=== PATIENT | male | born 1985 | race Caucasian/White ===

== ENCOUNTER 2018-12-24 08:48 | Inpatient (IN) | payer OTHER ==
[~2018-12-24] VITALS: Ht 188 cm; Wt 122.5 kg
[2018-12-24] MEDS ORDERED: ONDANSETRON HCL 4 MG/2 ML VIAL ONE ×2 (09:33→17:54)
[2018-12-24] MEDS ORDERED: MORPHINE SULFATE 4 MG/1ML SYG ONE ×3 (09:34→17:54)
[2018-12-24] MEDS ORDERED: SODIUM CHLORIDE 0.9% 1000ML 1,000 ML IV ONE ×2 (09:34→17:55)
[2018-12-24] MEDS ORDERED: DIATR MEGLU/DIATRIZOATE SODIUM 30 ML BOTTLE ONE (09:35)
[2018-12-24 09:41] LABS: CREATININE 1.2 mg/dL (0.5-1.5)
[2018-12-24 09:43] LABS: INR 0.95 (0.85-1.15); PARTIAL THROMBOPLASTIN TIME 34.6 SEC (26.3-35.5)
[2018-12-24 09:45] LABS: ALBUMIN 4.3 g/dL (3.5-5.0); BILIRUBIN,DIRECT 0.1 mg/dL (0.0-0.3); BILIRUBIN,TOTAL 0.4 mg/dL (0.2-1.0); TOTAL PROTEIN, SERUM 7.6 g/dL (6.0-8.3)
[2018-12-24 09:48] LABS: BASOPHILS % (AUTO) 0.9 % (0.0-5.0); EOSINOPHILS % (AUTO) 18.4 % (0.0-8.0); HEMATOCRIT 45.1 % (42-54); LYMPHOCYTES % (AUTO) 19.9 % (21.0-51.0); MEAN CORPUSCULAR HEMOGLOBIN 30.9 pg (27.0-33.0); MEAN CORPUSCULAR HGB CONC 33.9 g/dL (32.0-36.0); MEAN CORPUSCULAR VOLUME 91.1 fL (79-99); MONOCYTES % (AUTO) 6.6 % (3.0-13.0); NEUTROPHILS % (AUTO) 54.2 % (40.0-77.0); NUCLEATED RED BLOOD CELLS 0.1 % (0.0-0.19); PLATELET COUNT (AUTO) 210 K/uL (130-400); RED BLOOD CELL COUNT(AUTO) 4.94 MIL/uL (4.50-6.20); RED CELL DISTRIBUTION WIDTH 13.4 % (11.0-15.5); WHITE BLOOD COUNT (AUTO) 8.9 K/uL (4.8-10.8)
[2018-12-24 10:13] LABS: APPEARANCE,URINE Clear (CLEAR); BILIRUBIN,URINE Negative (NEGATIVE); COLOR,URINE Yellow (YELLOW); GLUCOSE, URINE (UA) Negative (NEGATIVE); KETONES,URINE Trace mg/dL (NEGATIVE); LEUKOCYTE ESTERASE ,URINE Negative (NEGATIVE); NITRATE,URINE Negative (NEGATIVE); OCCULT BLOOD,URINE Negative (NEGATIVE); PH,URINE 5.5 (5.0-8.0); PROTEIN,URINE Negative (NEGATIVE)
[2018-12-24 10:26] LABS: BACTERIA,URINE None Seen /HPF (None Seen); RBC,URINE None Seen /HPF (0-1); SQUAMOUS EPITHELIAL CELL,UR 0-2 /HPF (0-2); WBC,URINE None Seen /HPF (0-1)
[2018-12-24] MEDS ORDERED: IOHEXOL-350 75 ML VIAL IV ONE (12:11)
[2018-12-24] MEDS ORDERED: KETOROLAC TROMETHAMINE 30MG/ML ONE (14:15)
[2018-12-24] MEDS ORDERED: DICYCLOMINE HCL 10 MG/ML 2ML AMP IM ONE (14:15)
[2018-12-24] MEDS: SODIUM CHLORIDE 0.9% 1000ML 1,000 ML IV SCH (17:47)
[2018-12-24] MEDS ORDERED: HYDRALAZINE HCL 20 MG/ML VIAL IV PRN (18:00)
[2018-12-24] MEDS ORDERED: ACETAMINOPHEN 325 MG TAB PO PRN ×2 (18:00)
[2018-12-24] MEDS ORDERED: PEG 3350/NA SULF,BICARB,CL/KCL 4000 ML SOLN PO SCH (18:45)
[2018-12-24 19:45] VITALS: BP 125/58
--- NOTE | 2018-12-24 19:45 | NUR ---
Admission note: Admitted to floor per wheelchair. Amb indep. Fully awake and responsive. Still in pain to right abdomen as verbalized. Tylenol 650 mg po q4hrs for discomfort given as ordered. Placed in bed comfortably. VS checked and recorded. Assessment done. ( see flow chart for full assessment) Plan of care initiated. Consent for colonoscopy with MAC signed. 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 Oriented to room and used of call light. Policies and procedures explained. Verbalized understanding. Noted IV site # 18 gauge to RAC with IVF of NS at 125 ml / hr. - patent and intact. Monitored and observed for any unusualities. Cared for and needs attended. No apparent distress noted.
[2018-12-24] MEDS: FAMOTIDINE/PF 20 MG/2 ML VIAL IV SCH (20:30)
[2018-12-24] MEDS: ZOSYN 3.375GM+NS 50ML 50 ML IV SCH (20:30)
[2018-12-24] MEDS ORDERED: MORPHINE SULFATE 2 MG/ML 1ML SYG ONE (22:07)
--- NOTE | 2018-12-24 22:09 | NUR ---
MORPHINE 2 MG Administered morphine 2 mg IV every 4 hours for pain of 5-10 as ordered.
[2018-12-24] MEDS ORDERED: BUSP10TA3 PO (22:27)
[2018-12-24] MEDS ORDERED: FLUO20TA29 PO (22:27)
[2018-12-24] MEDS ORDERED: TRAZ-185 PO (22:27)
[2018-12-24] MEDS ORDERED: LISI-613 PO (22:27)
[2018-12-24] MEDS: ONDANSETRON HCL 4 MG/2 ML VIAL IV PRN (23:32)
[2018-12-25] VITALS (22 sets, daily range): BP systolic 107–141; BP diastolic 50–95
[2018-12-25] MEDS: ZOSYN 3.375GM+NS 50ML 50 ML IV SCH ×3 (04:31→21:18)
[2018-12-25] MEDS: SODIUM CHLORIDE 0.9% 1000ML 1,000 ML IV SCH ×2 (04:36→21:18)
[2018-12-25] MEDS: MORPHINE SULFATE 2 MG/ML 1ML SYG IVP PRN ×3 (04:37→22:11)
[2018-12-25 04:40] LABS: HEMATOCRIT 40.5 % (42-54); MEAN CORPUSCULAR HEMOGLOBIN 30.8 pg (27.0-33.0); MEAN CORPUSCULAR HGB CONC 33.6 g/dL (32.0-36.0); MEAN CORPUSCULAR VOLUME 91.7 fL (79-99); PLATELET COUNT (AUTO) 188 K/uL (130-400); RED BLOOD CELL COUNT(AUTO) 4.42 MIL/uL (4.50-6.20); RED CELL DISTRIBUTION WIDTH 13.5 % (11.0-15.5); WHITE BLOOD COUNT (AUTO) 9.5 K/uL (4.8-10.8)
[2018-12-25 04:58] LABS: CREATININE 1.3 mg/dL (0.5-1.5); CRP QUANTITATIVE 5.2 mg/L (0.00-9.0); POTASSIUM 4.5 mmol/L (3.5-5.1)
[2018-12-25 05:38] LABS: ERYTHROCYTE SEDIMENTATION RATE 2 MM/HR (0-15)
[2018-12-25] MEDS: BUSPIRONE HCL 5 MG TABLET PO SCH ×3 (09:48→21:18)
[2018-12-25] MEDS: FAMOTIDINE/PF 20 MG/2 ML VIAL IV SCH ×2 (09:48→21:18)
[2018-12-25] MEDS: FLUOXETINE HCL 20 MG CAPSULE PO SCH (09:48)
[2018-12-25] MEDS: LISINOPRIL 20 MG TABLET PO SCH (09:49)
[2018-12-25] MEDS ORDERED: LIDOCAINE HCL 1% 20 ML VIAL ONE (11:21)
[2018-12-25] MEDS ORDERED: PROPOFOL 1000 MG/100 ML 100 ML IV ONE (11:40)
--- NOTE | 2018-12-25 16:28 | NUR ---
D/C PLAN CM spoke to pt regarding d/c planning. Pt is ind. and lives with spouse. States spouse currently out of town. CM asked pt about transportation to home at discharge. States he has someone he can call. No needs verbalized or identified. Plan to home. ANNE also spoke to Dr. Thurman regarding status clarification. Verified status is inpatient. States pt may be needing surgery prior to discharge. CM to f/u. Addendum: 12/25/18 at 1631 by KYLE BILLINGSLEY CM Amended: Links added.
[2018-12-25] MEDS: TRAZODONE HCL 50 MG TAB PO SCH (21:19)
[2018-12-26] MEDS: SODIUM CHLORIDE 0.9% 1000ML 1,000 ML IV SCH ×4 (01:47→21:12)
[2018-12-26 04:20] VITALS: BP 110/73
[2018-12-26] MEDS: ZOSYN 3.375GM+NS 50ML 50 ML IV SCH ×3 (05:03→21:12)
[2018-12-26 05:59] LABS: HEMATOCRIT 39.2 % (42-54); MEAN CORPUSCULAR HGB CONC 33.9 g/dL (32.0-36.0); MEAN CORPUSCULAR VOLUME 91.6 fL (79-99); PLATELET COUNT (AUTO) 185 K/uL (130-400); RED BLOOD CELL COUNT(AUTO) 4.27 MIL/uL (4.50-6.20); RED CELL DISTRIBUTION WIDTH 13.5 % (11.0-15.5); WHITE BLOOD COUNT (AUTO) 9.3 K/uL (4.8-10.8)
[2018-12-26 06:07] LABS: CREATININE 1.1 mg/dL (0.5-1.5); POTASSIUM 4.3 mmol/L (3.5-5.1)
[2018-12-26 06:12] LABS: EOSINOPHILS % (MANUAL) 14 % (1-6); LYMPHOCYTES % (MANUAL) 44 % (22-44); MAN.DIFF COMMENT-IMPRESSION MANUAL DIFFERENTIAL; MONOCYTES % (MANUAL) 4 % (2-9); PLATELET MORPHOLOGY COMMENT ADEQUATE; SEGMENTED NEUTROPHILS % 38 % (40-70)
[2018-12-26 07:30] VITALS: BP 118/67
[2018-12-26] MEDS: FAMOTIDINE/PF 20 MG/2 ML VIAL IV SCH ×2 (10:28→21:08)
[2018-12-26] MEDS: MORPHINE SULFATE 2 MG/ML 1ML SYG IVP PRN (10:28)
[2018-12-26] MEDS: BUSPIRONE HCL 5 MG TABLET PO SCH ×3 (10:29→21:09)
[2018-12-26] MEDS: LISINOPRIL 20 MG TABLET PO SCH (10:29)
[2018-12-26] MEDS: FLUOXETINE HCL 20 MG CAPSULE PO SCH (10:29)
[2018-12-26 11:00] VITALS: BP 123/59
[2018-12-26 16:00] VITALS: BP 108/69
[2018-12-26] MEDS: ONDANSETRON HCL 4 MG/2 ML VIAL IV PRN (18:09)
[2018-12-26 20:44] VITALS: BP 125/68
[2018-12-26] MEDS: TRAZODONE HCL 50 MG TAB PO SCH (21:09)
[2018-12-26 23:47] VITALS: BP 110/67
[2018-12-27 04:39] VITALS: BP 115/67
[2018-12-27] MEDS: ZOSYN 3.375GM+NS 50ML 50 ML IV SCH (05:05)
[2018-12-27] MEDS: SODIUM CHLORIDE 0.9% 1000ML 1,000 ML IV SCH (07:29)
[2018-12-27 08:00] VITALS: BP 101/71
[2018-12-27] MEDS: FLUOXETINE HCL 20 MG CAPSULE PO SCH (08:53)
[2018-12-27] MEDS: BUSPIRONE HCL 5 MG TABLET PO SCH (08:53)
[2018-12-27] MEDS: FAMOTIDINE/PF 20 MG/2 ML VIAL IV SCH (08:53)
[2018-12-27] MEDS: LISINOPRIL 20 MG TABLET PO SCH (08:53)
[2018-12-27 11:00] VITALS: BP 134/82
[2018-12-27] MEDS ORDERED: AMOX-429 PO (15:59)
== END 2018-12-27 17:45 | disposition home or self-care (01) | DRG 395 ==
LOC: EDH 08:48 → EDHIP 08:49 → 3DH 19:32
PROVIDERS: ADMIT Internal Medicine; ATTEND Internal Medicine
PROC: 0DBB8ZX Excision of Ileum, Via Natural or Artificial Opening Endoscopic, Diagnostic (ICD-10-PCS; principal; 2018-12-25)
PROC: 0DBP8ZX Excision of Rectum, Via Natural or Artificial Opening Endoscopic, Diagnostic (ICD-10-PCS; 2018-12-25)
PROC: 0DBF8ZX Excision of Right Large Intestine, Via Natural or Artificial Opening Endoscopic, Diagnostic (ICD-10-PCS; 2018-12-25)
PROC: 0DBG8ZX Excision of Left Large Intestine, Via Natural or Artificial Opening Endoscopic, Diagnostic (ICD-10-PCS; 2018-12-25)
DX: I88.0 Nonspecific mesenteric lymphadenitis (principal); I10 Essential (primary) hypertension; R63.4 Abnormal weight loss; R19.7 Diarrhea, unspecified; E78.5 Hyperlipidemia, unspecified; R63.0 Anorexia; Z68.34 Body mass index [BMI] 34.0-34.9, adult
CPT/HCPCS: 36415; 45380; 74177; 76705; 80048; 80076; 81001; 82150; 83690; 84145; 85025; 85027; 85610; 85651; 85730; 86140; 86757; 87507; 88305; G0378; J0500; J1885; J2270; J2405; J2543; J2704; J3490; J7030; Q9963; Q9967

== ENCOUNTER 2019-04-26 12:36 | Inpatient (IN) | payer OTHER ==
[~2019-04-26] VITALS: Ht 190.5 cm; Wt 124.7 kg
[2019-04-26] VITALS (21 sets, daily range): BP systolic 79–149; BP diastolic 29–92
[~2019-04-26 12:36] MED LIST: BUSP10TA3 PO; FLUO20TA29 PO; LISI-613 PO; TRAZ-185 PO; TYL3 PO
[2019-04-26 12:57] LABS: APPEARANCE,URINE Clear (CLEAR); BILIRUBIN,URINE Negative (NEGATIVE); COLOR,URINE Dark Yellow (YELLOW); GLUCOSE, URINE (UA) Negative (NEGATIVE); KETONES,URINE Negative (NEGATIVE); LEUKOCYTE ESTERASE ,URINE Negative (NEGATIVE); NITRATE,URINE Negative (NEGATIVE); OCCULT BLOOD,URINE Large (NEGATIVE); PH,URINE 5.5 (5.0-8.0); PROTEIN,URINE 300 mg/dL (NEGATIVE)
[2019-04-26 13:08] LABS: BACTERIA,URINE None Seen /HPF (None Seen); CALCIUM OXALATE CRYSTALS,UR Few /LPF (None Seen); MUCUS,URINE Few LPF (None Seen); RBC,URINE 0-1 /HPF (0-1); SQUAMOUS EPITHELIAL CELL,UR 0-2 /HPF (0-2); WBC,URINE 0-1 /HPF (0-1)
[2019-04-26 13:08] LABS: BASOPHILS % (AUTO) 0.9 % (0.0-5.0); EOSINOPHILS % (AUTO) 3.5 % (0.0-8.0); LYMPHOCYTES % (AUTO) 27.1 % (21.0-51.0); MEAN CORPUSCULAR HEMOGLOBIN 30.7 pg (27.0-33.0); MEAN CORPUSCULAR HGB CONC 34.4 g/dL (32.0-36.0); MEAN CORPUSCULAR VOLUME 89.3 fL (79-99); MONOCYTES % (AUTO) 7.8 % (3.0-13.0); NEUTROPHILS % (AUTO) 60.7 % (40.0-77.0); PLATELET COUNT (AUTO) 210 K/uL (130-400); RED BLOOD CELL COUNT(AUTO) 5.38 MIL/uL (4.50-6.20); WHITE BLOOD COUNT (AUTO) 9.7 K/uL (4.8-10.8)
[2019-04-26 13:17] LABS: CREATININE 1.3 mg/dL (0.5-1.5); POTASSIUM 3.6 mmol/L (3.5-5.1)
[2019-04-26 13:31] LABS: ALBUMIN 4.5 g/dL (3.5-5.0); BILIRUBIN,TOTAL 0.9 mg/dL (0.2-1.0); TOTAL PROTEIN, SERUM 7.8 g/dL (6.0-8.3)
[2019-04-26] MEDS ORDERED: SODIUM CHLORIDE 0.9% 1000ML 2,000 ML IV ONE (13:46)
[2019-04-26] MEDS ORDERED: MORPHINE SULFATE 4 MG/1ML SYG ONE ×2 (15:18→15:55)
[2019-04-26] MEDS ORDERED: ONDANSETRON HCL 4 MG/2 ML VIAL ONE ×2 (15:18→17:07)
[2019-04-26] MEDS ORDERED: HYDROMORPHONE 1 MG/1 ML AMP ONE (16:41)
[2019-04-26] MEDS ORDERED: DEXAMETHASONE SOD PHOSPHATE 10MG/ML 1ML VIAL ONE (17:05)
[2019-04-26] MEDS ORDERED: LIDOCAINE PF 2% 5ML ABBOJECT ONE (17:05)
[2019-04-26] MEDS ORDERED: SUCCINYLCHOLINE 200MG/10ML SYR ONE (17:05)
[2019-04-26] MEDS ORDERED: MIDAZOLAM HCL 1 MG/ML 2ML VIAL ONE (17:06)
[2019-04-26] MEDS ORDERED: ROCURONIUM 10MG/1ML SYR 10 MG/ML ML ONE (17:07)
[2019-04-26] MEDS ORDERED: GLYCOPYRROLATE 1 MG/5 ML SYRINGE ONE (17:07)
[2019-04-26] MEDS ORDERED: NEOSTIGMINE 5MG/5ML SYR IV ONE (17:07)
[2019-04-26] MEDS ORDERED: PROPOFOL 10 MG/ML 20ML VIAL IV ONE (17:07)
[2019-04-26] MEDS ORDERED: FENTANYL CITRATE PF 50 MCG/1 ML 2ML VIAL ONE (17:08)
[2019-04-26] MEDS ORDERED: SODIUM CHLORIDE 0.9% 1000ML 1,000 ML IV SCH (17:13)
[2019-04-26] MEDS ORDERED: HYDROMORPHONE 1 MG/1 ML AMP IV PRN (17:15)
[2019-04-26] MEDS ORDERED: ONDANSETRON HCL 4 MG/2 ML VIAL IV PRN (17:15)
[2019-04-26] MEDS ORDERED: ACETAMINOPHEN 325 MG TAB PO PRN ×2 (17:15)
[2019-04-26] MEDS ORDERED: MORPHINE SULFATE 2 MG/ML 1ML SYG IV PRN (17:15)
[2019-04-26] MEDS ORDERED: CEFAZOLIN SODIUM 1 GM VIAL ONE ×2 (17:48→23:56)
[2019-04-26] MEDS ORDERED: EPHEDRINE SULFATE 50 MG/ML AMPULE ONE (18:22)
[2019-04-26] MEDS ORDERED: FERROUS FUMARATE 324 MG TABLET PO PRN (19:00)
[2019-04-26] MEDS ORDERED: POTASSIUM CHLORIDE 20MEQ/100ML 100 ML IV PRN (19:00)
[2019-04-26] MEDS ORDERED: TRAMADOL HCL 50 MG TABLET PO PRN (19:00)
[2019-04-26] MEDS ORDERED: DIPHENHYDRAMINE HCL 25 MG CAPSULE PO PRN (19:00)
[2019-04-26] MEDS ORDERED: MEPERIDINE-PF 25 MG/ML SYG ONE ×2 (19:30→19:39)
[2019-04-26] MEDS: SODIUM CHLORIDE 0.9% 1000ML 1,000 ML IV SCH (20:35)
[2019-04-26] MEDS: FAMOTIDINE/PF 20 MG/2 ML VIAL IV SCH (20:35)
[2019-04-26] MEDS: OXYCODONE HCL 5 MG TAB PO PRN (20:46)
[2019-04-26] MEDS: ACETAMINOPHEN EXTRA STRENGTH 500 MG TABLET PO SCH (20:46)
[2019-04-26] MEDS: HYDROMORPHONE 1 MG/1 ML AMP IVP PRN (22:56)
[2019-04-26] MEDS: CEFAZOLIN 3GM /D5W 100ML 100 ML IV SCH (23:59)
[2019-04-27] VITALS (7 sets, daily range): BP systolic 109–173; BP diastolic 50–62
[2019-04-27] MEDS: OXYCODONE HCL 5 MG TAB PO PRN (01:19)
[2019-04-27] MEDS: ACETAMINOPHEN EXTRA STRENGTH 500 MG TABLET PO SCH ×3 (02:25→18:39)
[2019-04-27 04:27] LABS: BASOPHILS % (AUTO) 0.2 % (0.0-5.0); HEMATOCRIT 41.9 % (42-54); MEAN CORPUSCULAR HEMOGLOBIN 31.1 pg (27.0-33.0); MEAN CORPUSCULAR HGB CONC 34.5 g/dL (32.0-36.0); MEAN CORPUSCULAR VOLUME 90.2 fL (79-99); MONOCYTES % (AUTO) 2.4 % (3.0-13.0); NEUTROPHILS % (AUTO) 91.4 % (40.0-77.0); NUCLEATED RED BLOOD CELLS 0.1 % (0.0-0.19); PLATELET COUNT (AUTO) 192 K/uL (130-400); RED BLOOD CELL COUNT(AUTO) 4.64 MIL/uL (4.50-6.20); RED CELL DISTRIBUTION WIDTH 13.5 % (11.0-15.5); WHITE BLOOD COUNT (AUTO) 11.2 K/uL (4.8-10.8)
[2019-04-27 04:49] LABS: ALBUMIN 3.6 g/dL (3.5-5.0); BILIRUBIN,TOTAL 0.7 mg/dL (0.2-1.0); CREATININE 1.2 mg/dL (0.5-1.5); POTASSIUM 4.7 mmol/L (3.5-5.1); TOTAL PROTEIN, SERUM 6.7 g/dL (6.0-8.3)
[2019-04-27] MEDS: HYDROMORPHONE 1 MG/1 ML AMP IVP PRN ×3 (04:49→13:27)
[2019-04-27] MEDS: SODIUM CHLORIDE 0.9% 1000ML 1,000 ML IV SCH ×2 (04:54→08:53)
[2019-04-27] MEDS ORDERED: CEFAZOLIN SODIUM 1 GM VIAL ONE (08:39)
[2019-04-27] MEDS: ENOXAPARIN SODIUM 30 MG/0.3 ML SQ SCH (08:53)
[2019-04-27] MEDS: FAMOTIDINE/PF 20 MG/2 ML VIAL IV SCH ×2 (08:54→21:46)
[2019-04-27] MEDS: CEFAZOLIN 3GM /D5W 100ML 100 ML IV SCH (09:12)
--- NOTE | 2019-04-27 13:19 | NUR ---
DC PLAN PER PATIENT, IS INDEPENDENT, LIVES ALONE, NO PROVIDER, NO EQUIPMENT, AND FEELS SAFE TO RETURN HOME. Addendum: 04/27/19 at 1320 by MO LOTT RN CM Amended: Links added.
[2019-04-27] MEDS: PSYLLIUM SEED 1 EACH PACKET PO SCH (13:27)
[2019-04-27] MEDS ORDERED: HYDROMORPHONE PCA 10 MG/50 ML 50 ML IV PRN (15:15)
[2019-04-27] MEDS: SODIUM BICARB 8.4% 50ML SYRING 75 MEQ in 1/2 NORMAL SALINE 1,000 ML IV SCH ×2 (18:18→21:47)
[2019-04-27] MEDS: HYDROMORPHONE PCA 10 MG/50 ML 50 ML IV PRN (18:28)
[2019-04-27] MEDS: TRAZODONE HCL 50 MG TAB PO SCH (21:46)
[2019-04-27] MEDS: BUSPIRONE HCL 5 MG TABLET PO SCH (21:46)
[2019-04-28] VITALS (23 sets, daily range): BP systolic 96–155; BP diastolic 48–83
[2019-04-28] MEDS: SODIUM BICARB 8.4% 50ML SYRING 75 MEQ in 1/2 NORMAL SALINE 1,000 ML IV SCH ×3 (03:21→20:27)
[2019-04-28] MEDS: ACETAMINOPHEN EXTRA STRENGTH 500 MG TABLET PO SCH ×3 (03:24→18:25)
[2019-04-28 05:11] LABS: BASOPHILS % (AUTO) 0.8 % (0.0-5.0); EOSINOPHILS % (AUTO) 1.7 % (0.0-8.0); HEMATOCRIT 35.4 % (42-54); LYMPHOCYTES % (AUTO) 26.7 % (21.0-51.0); MEAN CORPUSCULAR HEMOGLOBIN 31.1 pg (27.0-33.0); MEAN CORPUSCULAR HGB CONC 34.6 g/dL (32.0-36.0); MONOCYTES % (AUTO) 7.9 % (3.0-13.0); NEUTROPHILS % (AUTO) 62.9 % (40.0-77.0); PLATELET COUNT (AUTO) 167 K/uL (130-400); RED BLOOD CELL COUNT(AUTO) 3.94 MIL/uL (4.50-6.20); RED CELL DISTRIBUTION WIDTH 13.1 % (11.0-15.5); WHITE BLOOD COUNT (AUTO) 8.4 K/uL (4.8-10.8)
[2019-04-28 05:50] LABS: ALBUMIN 3.1 g/dL (3.5-5.0); BILIRUBIN,DIRECT 0.1 mg/dL (0.0-0.3); BILIRUBIN,TOTAL 0.4 mg/dL (0.2-1.0); CREATININE 1.1 mg/dL (0.5-1.5); MAGNESIUM 2.6 mg/dL (1.80-2.40); POTASSIUM 4.2 mmol/L (3.5-5.1); TOTAL PROTEIN, SERUM 5.7 g/dL (6.0-8.3)
[2019-04-28] MEDS: DiphenhydrAMINE HCL 50 MG/ML VIAL IVP PRN (06:28)
[2019-04-28] MEDS: BUSPIRONE HCL 5 MG TABLET PO SCH ×3 (09:00→20:26)
[2019-04-28] MEDS: ENOXAPARIN SODIUM 30 MG/0.3 ML SQ SCH (09:00)
[2019-04-28] MEDS: FLUOXETINE HCL 20 MG CAPSULE PO SCH (09:00)
[2019-04-28] MEDS: LISINOPRIL 10 MG TABLET PO SCH (09:00)
[2019-04-28] MEDS: FAMOTIDINE/PF 20 MG/2 ML VIAL IV SCH ×3 (09:11→20:26)
[2019-04-28] MEDS: PSYLLIUM SEED 1 EACH PACKET PO SCH (11:58)
[2019-04-28] MEDS ORDERED: LIDOCAINE PF 2% 5ML ABBOJECT ONE (12:29)
[2019-04-28] MEDS ORDERED: PROPOFOL 10 MG/ML 20ML VIAL IV ONE (12:30)
[2019-04-28] MEDS ORDERED: FENTANYL CITRATE PF 50 MCG/1 ML 2ML VIAL ONE (12:30)
[2019-04-28] MEDS ORDERED: CEFAZOLIN SODIUM 1 GM VIAL ONE (13:39)
[2019-04-28] MEDS: GABAPENTIN 100 MG CAPSULE PO SCH ×2 (14:00→20:26)
[2019-04-28] MEDS ORDERED: KETOROLAC TROMETHAMINE 30MG/ML ONE (14:43)
[2019-04-28] MEDS ORDERED: ONDANSETRON HCL 4 MG/2 ML VIAL ONE (14:43)
[2019-04-28] MEDS: SODIUM CHLORIDE 0.9% 1000ML 1,000 ML IV SCH (14:45)
[2019-04-28] MEDS: BISACODYL 5 MG TABLET.DR PO PRN (16:40)
[2019-04-28] MEDS ORDERED: BISACODYL 5 MG TABLET.DR PO ONE (16:40)
[2019-04-28] MEDS: HYDROMORPHONE PCA 10 MG/50 ML 50 ML IV PRN (18:26)
[2019-04-28] MEDS: TRAZODONE HCL 50 MG TAB PO SCH (20:26)
[2019-04-29] VITALS (7 sets, daily range): BP systolic 115–150; BP diastolic 67–78
[2019-04-29] MEDS: SODIUM CHLORIDE 0.9% 1000ML 1,000 ML IV SCH ×2 (00:19→10:45)
[2019-04-29] MEDS: ACETAMINOPHEN EXTRA STRENGTH 500 MG TABLET PO SCH ×4 (02:23→21:14)
[2019-04-29 04:26] LABS: BASOPHILS % (AUTO) 0.3 % (0.0-5.0); EOSINOPHILS % (AUTO) 3.3 % (0.0-8.0); HEMATOCRIT 35.8 % (42-54); LYMPHOCYTES % (AUTO) 26.3 % (21.0-51.0); MEAN CORPUSCULAR HEMOGLOBIN 31.3 pg (27.0-33.0); MEAN CORPUSCULAR HGB CONC 34.4 g/dL (32.0-36.0); NEUTROPHILS % (AUTO) 61.1 % (40.0-77.0); NUCLEATED RED BLOOD CELLS 0.1 % (0.0-0.19); PLATELET COUNT (AUTO) 165 K/uL (130-400); RED BLOOD CELL COUNT(AUTO) 3.93 MIL/uL (4.50-6.20); WHITE BLOOD COUNT (AUTO) 8.4 K/uL (4.8-10.8)
[2019-04-29 04:54] LABS: ALBUMIN 2.8 g/dL (3.5-5.0); BILIRUBIN,DIRECT 0.1 mg/dL (0.0-0.3); BILIRUBIN,TOTAL 0.6 mg/dL (0.2-1.0); CREATININE 1.1 mg/dL (0.5-1.5); TOTAL PROTEIN, SERUM 5.5 g/dL (6.0-8.3)
[2019-04-29] MEDS: FLUOXETINE HCL 20 MG CAPSULE PO SCH (09:09)
[2019-04-29] MEDS: ENOXAPARIN SODIUM 30 MG/0.3 ML SQ SCH (09:10)
[2019-04-29] MEDS: FAMOTIDINE/PF 20 MG/2 ML VIAL IV SCH ×2 (09:11→21:12)
[2019-04-29] MEDS: LISINOPRIL 10 MG TABLET PO SCH (09:11)
[2019-04-29] MEDS: BUSPIRONE HCL 5 MG TABLET PO SCH ×3 (09:12→21:13)
[2019-04-29] MEDS: GABAPENTIN 100 MG CAPSULE PO SCH ×3 (09:12→21:13)
[2019-04-29] MEDS: BISACODYL 5 MG TABLET.DR PO PRN (09:28)
[2019-04-29] MEDS: PSYLLIUM SEED 1 EACH PACKET PO SCH (12:55)
[2019-04-29] MEDS: CEFAZOLIN SODIUM 1 GM VIAL IVP SCH ×2 (18:40→23:51)
[2019-04-29] MEDS ORDERED: BISACODYL 10 MG SUPP.RECT RC PRN (19:00)
--- NOTE | 2019-04-29 19:40 | NUR ---
PM Assessment Received pt alone, no family around, with Bicarb drip at 150cc/hr infusing well, routine assessment done, plan of care di, confirmed awareness of plan surgery tomorrow, stated aware will be NPO after MN & the need to have a bath & requested to have it done before he goes to sleep. Per stated he has been compliant with all his treatment, medications. Stated he is aware what to expect with his surgery as he already had same procedure done on his other right leg. Pt currently denied discomfort, encourage to moved his toes while awake, to help with circulation, agreed. Pt also claimed to have a good bowel movement today.
[2019-04-29] MEDS: TRAZODONE HCL 50 MG TAB PO SCH (21:12)
[2019-04-29] MEDS: SODIUM BICARB 8.4% 50ML SYRING 75 MEQ in 1/2 NORMAL SALINE 1,000 ML IV SCH (21:13)
[2019-04-30] VITALS (22 sets, daily range): BP systolic 111–141; BP diastolic 58–88
[2019-04-30 03:51] LABS: BASOPHILS % (AUTO) 0.6 % (0.0-5.0); EOSINOPHILS % (AUTO) 2.4 % (0.0-8.0); HEMATOCRIT 34.5 % (42-54); LYMPHOCYTES % (AUTO) 30.5 % (21.0-51.0); MEAN CORPUSCULAR HEMOGLOBIN 31.3 pg (27.0-33.0); MEAN CORPUSCULAR HGB CONC 34.7 g/dL (32.0-36.0); MEAN CORPUSCULAR VOLUME 90.2 fL (79-99); MONOCYTES % (AUTO) 7.7 % (3.0-13.0); NEUTROPHILS % (AUTO) 58.8 % (40.0-77.0); PLATELET COUNT (AUTO) 173 K/uL (130-400); RED BLOOD CELL COUNT(AUTO) 3.83 MIL/uL (4.50-6.20); RED CELL DISTRIBUTION WIDTH 13.2 % (11.0-15.5); WHITE BLOOD COUNT (AUTO) 6.9 K/uL (4.8-10.8)
[2019-04-30 04:02] LABS: AMPHET/METH SCREEN,URINE NEGATIVE (NEGATIVE); BARBITURATE SCREEN, URINE NEGATIVE (NEGATIVE); BENZODIAZEPINES SCREEN,URINE NEGATIVE (NEGATIVE); CANNABINOID SCREEN,URINE NEGATIVE (NEGATIVE); COCAINE SCREEN,URINE NEGATIVE (NEGATIVE); OPIATE SCREEN,URINE NEGATIVE (NEGATIVE); PHENCYCLIDINE SCREEN,URINE NEGATIVE (NEGATIVE)
[2019-04-30 04:31] LABS: ALBUMIN 2.7 g/dL (3.5-5.0); BILIRUBIN,TOTAL 0.3 mg/dL (0.2-1.0); CREATININE 1.1 mg/dL (0.5-1.5); TOTAL PROTEIN, SERUM 5.6 g/dL (6.0-8.3)
[2019-04-30] MEDS: SODIUM BICARB 8.4% 50ML SYRING 75 MEQ in 1/2 NORMAL SALINE 1,000 ML IV SCH ×3 (05:37→23:51)
[2019-04-30] MEDS: FLUOXETINE HCL 20 MG CAPSULE PO SCH ×2 (09:00→14:18)
[2019-04-30] MEDS: LISINOPRIL 10 MG TABLET PO SCH (09:00)
[2019-04-30] MEDS: BUSPIRONE HCL 5 MG TABLET PO SCH ×3 (09:00→20:12)
[2019-04-30] MEDS: GABAPENTIN 100 MG CAPSULE PO SCH ×3 (09:00→20:12)
[2019-04-30] MEDS: ENOXAPARIN SODIUM 30 MG/0.3 ML SQ SCH (09:00)
[2019-04-30] MEDS: CEFAZOLIN SODIUM 1 GM VIAL IVP SCH ×3 (09:11→23:51)
[2019-04-30] MEDS: FAMOTIDINE/PF 20 MG/2 ML VIAL IV SCH ×2 (09:12→21:49)
[2019-04-30] MEDS ORDERED: MIDAZOLAM HCL 1 MG/ML 2ML VIAL ONE (10:18)
[2019-04-30] MEDS ORDERED: PROPOFOL 10 MG/ML 20ML VIAL IV ONE ×2 (10:18→10:29)
[2019-04-30] MEDS ORDERED: ROCURONIUM 10MG/1ML SYR 10 MG/ML ML ONE (10:18)
[2019-04-30] MEDS ORDERED: ONDANSETRON HCL 4 MG/2 ML VIAL ONE (10:19)
[2019-04-30] MEDS ORDERED: FENTANYL CITRATE PF 50 MCG/1 ML 2ML VIAL ONE (10:19)
[2019-04-30] MEDS ORDERED: MEPERIDINE-PF 25 MG/ML SYG ONE ×2 (10:43)
[2019-04-30] MEDS: ACETAMINOPHEN EXTRA STRENGTH 500 MG TABLET PO SCH ×2 (11:00→20:11)
[2019-04-30] MEDS: PSYLLIUM SEED 1 EACH PACKET PO SCH (12:00)
[2019-04-30] MEDS: TRAZODONE HCL 50 MG TAB PO SCH (20:12)
[2019-04-30] MEDS: DiphenhydrAMINE HCL 50 MG/ML VIAL IVP PRN (22:15)
[2019-05-01 03:19] VITALS: BP 118/65
[2019-05-01] MEDS: ACETAMINOPHEN EXTRA STRENGTH 500 MG TABLET PO SCH ×3 (03:21→20:00)
[2019-05-01 04:03] LABS: BASOPHILS % (AUTO) 0.5 % (0.0-5.0); EOSINOPHILS % (AUTO) 3.6 % (0.0-8.0); HEMATOCRIT 33.5 % (42-54); LYMPHOCYTES % (AUTO) 18.1 % (21.0-51.0); MEAN CORPUSCULAR HEMOGLOBIN 31.7 pg (27.0-33.0); MEAN CORPUSCULAR HGB CONC 35.2 g/dL (32.0-36.0); MONOCYTES % (AUTO) 7.2 % (3.0-13.0); NEUTROPHILS % (AUTO) 70.6 % (40.0-77.0); NUCLEATED RED BLOOD CELLS 0.1 % (0.0-0.19); PLATELET COUNT (AUTO) 167 K/uL (130-400); RED BLOOD CELL COUNT(AUTO) 3.72 MIL/uL (4.50-6.20); RED CELL DISTRIBUTION WIDTH 12.9 % (11.0-15.5); WHITE BLOOD COUNT (AUTO) 9.8 K/uL (4.8-10.8)
[2019-05-01 04:22] LABS: ALBUMIN 2.5 g/dL (3.5-5.0); BILIRUBIN,TOTAL 0.2 mg/dL (0.2-1.0); CREATININE 1.1 mg/dL (0.5-1.5); POTASSIUM 3.9 mmol/L (3.5-5.1); TOTAL PROTEIN, SERUM 5.4 g/dL (6.0-8.3)
[2019-05-01] MEDS: SODIUM BICARB 8.4% 50ML SYRING 75 MEQ in 1/2 NORMAL SALINE 1,000 ML IV SCH ×2 (06:46→14:10)
[2019-05-01 07:41] VITALS: BP 116/67
[2019-05-01] MEDS: LISINOPRIL 10 MG TABLET PO SCH (09:00)
[2019-05-01] MEDS: FAMOTIDINE/PF 20 MG/2 ML VIAL IV SCH ×2 (10:31→19:59)
[2019-05-01] MEDS: CEFAZOLIN SODIUM 1 GM VIAL IVP SCH ×2 (10:32→18:14)
[2019-05-01] MEDS: ENOXAPARIN SODIUM 30 MG/0.3 ML SQ SCH (10:33)
[2019-05-01] MEDS: GABAPENTIN 100 MG CAPSULE PO SCH ×3 (10:33→19:59)
[2019-05-01] MEDS: BUSPIRONE HCL 5 MG TABLET PO SCH ×3 (10:33→19:59)
[2019-05-01] MEDS: FLUOXETINE HCL 20 MG CAPSULE PO SCH (10:33)
[2019-05-01 11:21] VITALS: BP 135/74
[2019-05-01] MEDS: PSYLLIUM SEED 1 EACH PACKET PO SCH (14:11)
[2019-05-01 16:12] VITALS: BP 129/75
[2019-05-01 19:40] VITALS: BP 129/74
[2019-05-01] MEDS: TRAZODONE HCL 50 MG TAB PO SCH (19:59)
[2019-05-01 23:48] VITALS: BP 134/72
[2019-05-02] MEDS: SODIUM BICARB 8.4% 50ML SYRING 75 MEQ in 1/2 NORMAL SALINE 1,000 ML IV SCH ×2 (00:14→17:41)
[2019-05-02] MEDS: CEFAZOLIN SODIUM 1 GM VIAL IVP SCH ×3 (00:14→17:42)
[2019-05-02] MEDS: ACETAMINOPHEN EXTRA STRENGTH 500 MG TABLET PO SCH ×3 (03:00→20:52)
[2019-05-02 04:00] VITALS: BP 130/78
[2019-05-02 05:22] LABS: BASOPHILS % (AUTO) 0.5 % (0.0-5.0); EOSINOPHILS % (AUTO) 3.9 % (0.0-8.0); HEMATOCRIT 33.7 % (42-54); LYMPHOCYTES % (AUTO) 34.1 % (21.0-51.0); MEAN CORPUSCULAR HEMOGLOBIN 31.7 pg (27.0-33.0); MEAN CORPUSCULAR HGB CONC 35.3 g/dL (32.0-36.0); NEUTROPHILS % (AUTO) 55.5 % (40.0-77.0); PLATELET COUNT (AUTO) 184 K/uL (130-400); RED BLOOD CELL COUNT(AUTO) 3.75 MIL/uL (4.50-6.20); RED CELL DISTRIBUTION WIDTH 13.4 % (11.0-15.5)
[2019-05-02 06:04] LABS: ALBUMIN 2.6 g/dL (3.5-5.0); BILIRUBIN,TOTAL 0.1 mg/dL (0.2-1.0); CREATININE 1.1 mg/dL (0.5-1.5); POTASSIUM 3.6 mmol/L (3.5-5.1); TOTAL PROTEIN, SERUM 5.4 g/dL (6.0-8.3)
[2019-05-02 08:13] VITALS: BP 131/83
[2019-05-02] MEDS: FAMOTIDINE/PF 20 MG/2 ML VIAL IV SCH ×2 (09:34→20:53)
[2019-05-02] MEDS: FLUOXETINE HCL 20 MG CAPSULE PO SCH (09:34)
[2019-05-02] MEDS: GABAPENTIN 100 MG CAPSULE PO SCH ×3 (09:34→20:53)
[2019-05-02] MEDS: BUSPIRONE HCL 5 MG TABLET PO SCH ×3 (09:35→20:53)
[2019-05-02] MEDS: ENOXAPARIN SODIUM 30 MG/0.3 ML SQ SCH (09:36)
[2019-05-02] MEDS: LISINOPRIL 10 MG TABLET PO SCH (09:36)
[2019-05-02] MEDS: PSYLLIUM SEED 1 EACH PACKET PO SCH (12:16)
[2019-05-02 12:45] VITALS: BP 130/62
--- NOTE | 2019-05-02 14:21 | NUR ---
RD NOTIFICATION RD consults due to LOS X 6. Diet: Regular. PO intake 100% and has great appetite per pt. No complaints of N/V/C/D. Pt does not follow any particular diet at home. S/P Left leg lateral fascitomy wound post op day#1. LBM: 05/[address] recommends continue current diet RD will continue to monitor and f/u as needed, thank you. Addendum: 05/02/19 at [address] Amended: Links added.
[2019-05-02 16:19] VITALS: BP 120/68
[2019-05-02 20:12] VITALS: BP 137/85
[2019-05-02] MEDS: TRAZODONE HCL 50 MG TAB PO SCH (20:53)
[2019-05-03 00:16] VITALS: BP 141/82
[2019-05-03] MEDS: CEFAZOLIN SODIUM 1 GM VIAL IVP SCH ×3 (01:04→17:21)
[2019-05-03] MEDS: DiphenhydrAMINE HCL 50 MG/ML VIAL IVP PRN ×2 (01:11→23:59)
[2019-05-03] MEDS: ACETAMINOPHEN EXTRA STRENGTH 500 MG TABLET PO SCH ×3 (03:00→19:19)
[2019-05-03 04:15] VITALS: BP 128/78
[2019-05-03] MEDS: SODIUM BICARB 8.4% 50ML SYRING 75 MEQ in 1/2 NORMAL SALINE 1,000 ML IV SCH ×2 (06:11→11:00)
[2019-05-03 07:52] VITALS: BP 134/81
[2019-05-03] MEDS: LISINOPRIL 10 MG TABLET PO SCH ×2 (09:00→15:11)
[2019-05-03] MEDS: FLUOXETINE HCL 20 MG CAPSULE PO SCH ×2 (09:00→15:11)
[2019-05-03] MEDS: GABAPENTIN 100 MG CAPSULE PO SCH ×3 (09:00→20:21)
[2019-05-03] MEDS: ENOXAPARIN SODIUM 30 MG/0.3 ML SQ SCH (09:00)
[2019-05-03] MEDS: BUSPIRONE HCL 5 MG TABLET PO SCH ×3 (09:00→20:21)
[2019-05-03] MEDS: FAMOTIDINE/PF 20 MG/2 ML VIAL IV SCH ×2 (09:00→20:21)
[2019-05-03 11:16] VITALS: BP 130/85
[2019-05-03] MEDS: PSYLLIUM SEED 1 EACH PACKET PO SCH ×2 (12:00→15:11)
[2019-05-03 16:18] VITALS: BP 139/87
[2019-05-03 20:18] VITALS: BP 139/90
[2019-05-03] MEDS: TRAZODONE HCL 50 MG TAB PO SCH (20:21)
[2019-05-04] VITALS (22 sets, daily range): BP systolic 124–159; BP diastolic 67–88
[2019-05-04] MEDS: CEFAZOLIN SODIUM 1 GM VIAL IVP SCH ×3 (00:51→16:24)
[2019-05-04] MEDS: ACETAMINOPHEN EXTRA STRENGTH 500 MG TABLET PO SCH ×3 (02:47→18:19)
[2019-05-04 04:57] LABS: BASOPHILS % (AUTO) 0.9 % (0.0-5.0); EOSINOPHILS % (AUTO) 3.9 % (0.0-8.0); HEMATOCRIT 37.7 % (42-54); LYMPHOCYTES % (AUTO) 28.4 % (21.0-51.0); MEAN CORPUSCULAR HEMOGLOBIN 30.9 pg (27.0-33.0); MEAN CORPUSCULAR HGB CONC 34.2 g/dL (32.0-36.0); MEAN CORPUSCULAR VOLUME 90.4 fL (79-99); MONOCYTES % (AUTO) 8.5 % (3.0-13.0); NEUTROPHILS % (AUTO) 58.3 % (40.0-77.0); PLATELET COUNT (AUTO) 188 K/uL (130-400); RED BLOOD CELL COUNT(AUTO) 4.17 MIL/uL (4.50-6.20); RED CELL DISTRIBUTION WIDTH 13.6 % (11.0-15.5); WHITE BLOOD COUNT (AUTO) 7.9 K/uL (4.8-10.8)
[2019-05-04 05:13] LABS: CREATININE 1.2 mg/dL (0.5-1.5); POTASSIUM 4.3 mmol/L (3.5-5.1)
[2019-05-04] MEDS: FLUOXETINE HCL 20 MG CAPSULE PO SCH (08:27)
[2019-05-04] MEDS: BUSPIRONE HCL 5 MG TABLET PO SCH ×3 (08:27→19:55)
[2019-05-04] MEDS: FAMOTIDINE/PF 20 MG/2 ML VIAL IV SCH ×2 (08:27→19:56)
[2019-05-04] MEDS: GABAPENTIN 100 MG CAPSULE PO SCH ×3 (08:27→19:55)
[2019-05-04] MEDS: ENOXAPARIN SODIUM 30 MG/0.3 ML SQ SCH (08:28)
[2019-05-04] MEDS: LISINOPRIL 10 MG TABLET PO SCH (08:28)
--- NOTE | 2019-05-04 08:30 | NUR ---
TO OR PATIENT TRANSPORTED TO OR VIA HOSPITAL BED IN STABLE CONDITION.
[2019-05-04] MEDS ORDERED: LACTATED RINGERS 1000ML 1,000 ML IV ONE (08:49)
[2019-05-04] MEDS ORDERED: FENTANYL CITRATE PF 50 MCG/1 ML 2ML VIAL ONE ×3 (09:41→11:11)
[2019-05-04] MEDS ORDERED: PROPOFOL 10 MG/ML 20ML VIAL IV ONE (09:41)
[2019-05-04] MEDS ORDERED: MIDAZOLAM HCL 1 MG/ML 2ML VIAL ONE (09:42)
[2019-05-04] MEDS ORDERED: LIDOCAINE PF 2% 5ML ABBOJECT ONE (09:58)
[2019-05-04] MEDS ORDERED: DEXAMETHASONE SOD PHOSPHATE 10MG/ML 1ML VIAL ONE (10:05)
[2019-05-04] MEDS ORDERED: MEPERIDINE-PF 25 MG/ML SYG ONE ×3 (10:06→10:53)
[2019-05-04] MEDS ORDERED: EPHEDRINE SULFATE 50 MG/ML AMPULE ONE (10:12)
[2019-05-04] MEDS ORDERED: KETOROLAC TROMETHAMINE 30MG/ML ONE (10:15)
--- NOTE | 2019-05-04 11:33 | NUR ---
PEDAL PULSES DOPPLER Addendum: 05/04/19 at 1134 by GABBY HUGHES RN RN Amended: Links added.
--- NOTE | 2019-05-04 11:49 | NUR ---
POST SURGERY PATIENT RETURNED FROM PACU VIA HOSPITAL BED IN STABLE CONDITION. DRESSING TO LEFT LOWER EXTREMITY IS DRY AND INTACT. NO DRAINS PRESENT. WILL CONTINUE ORDERS PER MD.
[2019-05-04] MEDS: PSYLLIUM SEED 1 EACH PACKET PO SCH (11:55)
[2019-05-04] MEDS: SODIUM BICARB 8.4% 50ML SYRING 75 MEQ in 1/2 NORMAL SALINE 1,000 ML IV SCH (18:18)
[2019-05-04] MEDS: TRAZODONE HCL 50 MG TAB PO SCH (19:56)
[2019-05-05] MEDS: CEFAZOLIN SODIUM 1 GM VIAL IVP SCH ×2 (00:13→08:25)
[2019-05-05 03:40] VITALS: BP 113/56
[2019-05-05] MEDS: ACETAMINOPHEN EXTRA STRENGTH 500 MG TABLET PO SCH ×2 (03:41→11:11)
[2019-05-05 04:59] LABS: BASOPHILS % (AUTO) 0.3 % (0.0-5.0); EOSINOPHILS % (AUTO) 1.6 % (0.0-8.0); HEMATOCRIT 37.2 % (42-54); LYMPHOCYTES % (AUTO) 13.7 % (21.0-51.0); MEAN CORPUSCULAR HEMOGLOBIN 30.8 pg (27.0-33.0); MEAN CORPUSCULAR HGB CONC 34.1 g/dL (32.0-36.0); MEAN CORPUSCULAR VOLUME 90.4 fL (79-99); MONOCYTES % (AUTO) 8.6 % (3.0-13.0); NEUTROPHILS % (AUTO) 75.8 % (40.0-77.0); PLATELET COUNT (AUTO) 221 K/uL (130-400); RED BLOOD CELL COUNT(AUTO) 4.11 MIL/uL (4.50-6.20); RED CELL DISTRIBUTION WIDTH 13.5 % (11.0-15.5); WHITE BLOOD COUNT (AUTO) 11.1 K/uL (4.8-10.8)
[2019-05-05 05:55] LABS: CREATININE 1.1 mg/dL (0.5-1.5); POTASSIUM 3.7 mmol/L (3.5-5.1)
[2019-05-05 07:30] VITALS: BP 131/87
[2019-05-05] MEDS: BUSPIRONE HCL 5 MG TABLET PO SCH ×2 (08:25→14:00)
[2019-05-05] MEDS: FLUOXETINE HCL 20 MG CAPSULE PO SCH (08:25)
[2019-05-05] MEDS: LISINOPRIL 10 MG TABLET PO SCH (08:25)
[2019-05-05] MEDS: FAMOTIDINE/PF 20 MG/2 ML VIAL IV SCH (08:25)
[2019-05-05] MEDS: GABAPENTIN 100 MG CAPSULE PO SCH ×2 (08:25→14:00)
[2019-05-05] MEDS: ENOXAPARIN SODIUM 30 MG/0.3 ML SQ SCH (08:26)
[2019-05-05 11:00] VITALS: BP 161/75
[2019-05-05] MEDS: PSYLLIUM SEED 1 EACH PACKET PO SCH (11:13)
[2019-05-05] MEDS ORDERED: LEVO500T86 PO (12:59)
--- NOTE | 2019-05-05 13:50 | NUR ---
INSTRUCTIONS DISCHARGE INSTRUCTIONS GIVEN TO PATIENT USING TEACH BACK. NEW PRESCRIPTIONS PLACED IN PACKET ALONG WITH ALL PRINTED INFORMATION AND MD INSTRUCTIONS. NO QUESTIONS OR CONCERNS VOICED. IV REMOVED WITH TIP INTACT. DIRECT PRESSURE APPLIED TO CONTROL BLEEDING THEN SITE COVERED WITH GAUZE AND SECURED WITH TAPE.
== END 2019-05-05 14:35 | disposition home or self-care (01) | DRG 982 ==
LOC: EDH 12:36 → EDHIP 17:13 → 4BH 19:42
PROVIDERS: ADMIT Internal Medicine; ATTEND Internal Medicine
PROC: 0KNT0ZZ Release Left Lower Leg Muscle, Open Approach (ICD-10-PCS; 2019-04-26)
PROC: 0KNT0ZZ Release Left Lower Leg Muscle, Open Approach (ICD-10-PCS; principal; 2019-04-26 17:54)
PROC: 4A0 Measurement and Monitoring, Physiological Systems, Measurement (ICD-10-PCS; 2019-04-28)
PROC: 3E10X8Z Irrigation of Skin and Mucous Membranes using Irrigating Substance (ICD-10-PCS; 2019-04-28)
PROC: 0JQP3ZZ Repair Left Lower Leg Subcutaneous Tissue and Fascia, Percutaneous Approach (ICD-10-PCS; 2019-05-04)
DX: T79.A22A Traumatic compartment syndrome of left lower extremity, initial encounter (principal); M62.82 Rhabdomyolysis; R79.89 Other specified abnormal findings of blood chemistry; E78.5 Hyperlipidemia, unspecified; F43.10 Post-traumatic stress disorder, unspecified; I10 Essential (primary) hypertension; Z80.9 Family history of malignant neoplasm, unspecified; Z82.49 Family history of ischemic heart disease and other diseases of the circulatory system; Z82.3 Family history of stroke; Z90.49 Acquired absence of other specified parts of digestive tract; Y92.89 Other specified places as the place of occurrence of the external cause
CPT/HCPCS: 36415; 80048; 80053; 80076; 80305; 81001; 82550; 82977; 83735; 83874; 85025; 86308; 93005; 93971; 97039; A4355; G0378; J0330; J0690; J1100; J1170; J1200; J1650; J1885; J2001; J2175; J2250; J2270; J2405; J2704; J2710; J3010; J3490; J7030; J7120; Q0163

== ENCOUNTER 2019-05-19 13:19 | Emergency (ER) | payer OTHER ==
[~2019-05-19 13:19] MED LIST changes: +LEVO500T86 PO; -TYL3 PO
[2019-05-19 13:42] LABS: BASOPHILS % (AUTO) 1.4 % (0.0-5.0); EOSINOPHILS % (AUTO) 3.1 % (0.0-8.0); HEMATOCRIT 46.1 % (42-54); LYMPHOCYTES % (AUTO) 25.5 % (21.0-51.0); MEAN CORPUSCULAR HEMOGLOBIN 31.2 pg (27.0-33.0); MEAN CORPUSCULAR HGB CONC 34.5 g/dL (32.0-36.0); MEAN CORPUSCULAR VOLUME 90.4 fL (79-99); MONOCYTES % (AUTO) 8.3 % (3.0-13.0); NEUTROPHILS % (AUTO) 61.7 % (40.0-77.0); NUCLEATED RED BLOOD CELLS 0.1 % (0.0-0.19); PLATELET COUNT (AUTO) 223 K/uL (130-400); RED CELL DISTRIBUTION WIDTH 14.1 % (11.0-15.5); WHITE BLOOD COUNT (AUTO) 9.5 K/uL (4.8-10.8)
[2019-05-19 13:51] LABS: ABG BASE EXCESS 1.4 mmol/L (-2.0-3.0); ABG HCO3 20.6 mmol/L (21.0-28.0); ABG OXYGEN SATURATION 98.8 % (95.0-99.0); ABG PCO2 21 mmHg (35-48)
[2019-05-19 13:52] LABS: CREATININE 1.3 mg/dL (0.5-1.5); POTASSIUM 3.9 mmol/L (3.5-5.1)
[2019-05-19 13:57] LABS: ALBUMIN 3.9 g/dL (3.5-5.0); BILIRUBIN,TOTAL 0.5 mg/dL (0.2-1.0); INR 0.93 (0.85-1.15); PARTIAL THROMBOPLASTIN TIME 29.9 SEC (26.3-35.5); PROTHROMBIN TIME 9.8 SEC (9.6-11.6); TOTAL PROTEIN, SERUM 7.6 g/dL (6.0-8.3)
[2019-05-19 14:18] LABS: B-TYPE NATRIURETIC PEPTIDE < 5 pg/mL (0-100)
[2019-05-19] MEDS ORDERED: IOHEXOL 350 MG/ML 100ML INFUS..BTL IV ONE (14:20)
== END 2019-05-19 16:36 | disposition home or self-care (01) ==
LOC: EDH 13:19
DX: R06.00 Dyspnea, unspecified (principal); I10 Essential (primary) hypertension; F43.10 Post-traumatic stress disorder, unspecified; Z90.49 Acquired absence of other specified parts of digestive tract; Z98.890 Other specified postprocedural states
CPT/HCPCS: 36415; 36600; 71045; 71275; 80053; 82550; 82803; 83050; 83880; 84484; 85025; 85610; 85730; 93005; 93970; 96372; 99285; Q9967